=== PATIENT | male | born 1935 | race Caucasian/White ===

== ENCOUNTER 2018-06-29 17:57 | Emergency (ER) | payer OTHER, MEDICAID ==
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
[2018-06-29] MEDS ORDERED: PROPOFOL 200 MG/20 ML VIAL ONE (18:48)
[2018-06-29] MEDS ORDERED: PROPOFOL 200 MG/20 ML VIAL IVP ONE (19:14)
[2018-06-29 20:13] VITALS: BP 150/63
== END 2018-06-29 21:28 | disposition home or self-care (01) ==
LOC: EDUNIT#
PROC: 0HQ0XZZ Repair Scalp Skin, External Approach (ICD-10-PCS; principal; 2018-06-29)
DX: S01.01XA Laceration without foreign body of scalp, initial encounter (principal); F03.90 Unspecified dementia, unspecified severity, without behavioral disturbance, psychotic disturbance, mood disturbance, and anxiety; Y00.XXXA Assault by blunt object, initial encounter; Y92.039 Unspecified place in apartment as the place of occurrence of the external cause
CPT/HCPCS: 12001; 70450; 99285; J2704